=== PATIENT | female | born 1995 | race Caucasian/White ===

== ENCOUNTER 2022-03-03 12:04 | Outpatient (CLI) | payer OTHER | END 2022-03-03 12:11 | disposition home or self-care (01) | LOC: RAD 12:04 | PROVIDERS: ATTEND Orthopaedic Surgery | DX: S92.351A Displaced fracture of fifth metatarsal bone, right foot, initial encounter for closed fracture (principal) ==

== ENCOUNTER 2022-03-31 10:03 | Outpatient (CLI) | payer OTHER | END 2022-03-31 10:20 | disposition home or self-care (01) | LOC: RAD 10:03 | PROVIDERS: ATTEND Orthopaedic Surgery | DX: S92.351A Displaced fracture of fifth metatarsal bone, right foot, initial encounter for closed fracture (principal) ==